=== PATIENT | male | born 2000 | race Caucasian/White ===

== ENCOUNTER → 2019-10-11 | Outpatient (CLI) | payer OTHER | LOC: SJCVCIMAG 09:21 | DX: Z13.6 Encounter for screening for cardiovascular disorders (principal); I08.2 Rheumatic disorders of both aortic and tricuspid valves; Z82.49 Family history of ischemic heart disease and other diseases of the circulatory system ==

== ENCOUNTER → 2019-10-11 | Outpatient (CLI) | payer OTHER ==
[2019-10-11 14:23] LABS: CALCIUM 9.6 mg/dL (8.5-10.1); CREATININE 1.1 mg/dL (0.7-1.3); POTASSIUM 3.6 mmol/L (3.5-5.1)
== END ==
LOC: CAT 12:44
PROVIDERS: Internal Medicine Cardiovascular Disease
DX: Q24.5 Malformation of coronary vessels (principal)